=== PATIENT | male | born 1970 | race African-American/Black ===

== ENCOUNTER 2016-11-03 01:04 | Emergency (ER) | payer BC ==
[~2016-11-03] VITALS: Ht 172.7 cm; Wt 85.1 kg
[~2016-11-03 01:04] MED LIST: ANAPROX DS550 M1 PO; MOTRIN800 MG PO; NAPROXEN500 MG PO; NORCO 5/3251 TABLET PO; PEN-VEE K,VEET500 MG PO; PREDNISONE20 MG PO; no home
[2016-11-03] MEDS ORDERED: NAPROSYN500 MG PO (02:15)
[2016-11-03 02:24] VITALS: BP 138/83
== END 2016-11-03 02:24 | disposition home or self-care (01) ==
LOC: EXP 01:04 → EME 01:04 → EXP 02:24
DX: S46.911A Strain of unspecified muscle, fascia and tendon at shoulder and upper arm level, right arm, initial encounter (principal); X50.0XXA Overexertion from strenuous movement or load, initial encounter; Y99.0 Civilian activity done for income or pay; F17.200 Nicotine dependence, unspecified, uncomplicated
CPT/HCPCS: 73030; 99281; 99284

== ENCOUNTER 2016-12-20 16:32 | Emergency (ER) | payer OTHER, BC ==
[~2016-12-20] VITALS: Ht 172.7 cm; Wt 84.0 kg
[~2016-12-20 16:32] MED LIST changes: +NAPROSYN500 MG PO
[2016-12-20] MEDS ORDERED: NAPROXEN500 MG PO (20:14)
[2016-12-20] MEDS ORDERED: FLEXERIL10 MG PO (20:14)
[2016-12-20 20:41] VITALS: BP 108/61
== END 2016-12-20 20:43 | disposition home or self-care (01) ==
LOC: EME 16:32
DX: M54.2 Cervicalgia (principal); R51 Headache; M54.9 Dorsalgia, unspecified; V49.40XA Driver injured in collision with unspecified motor vehicles in traffic accident, initial encounter
CPT/HCPCS: 99281; 99282

== ENCOUNTER 2017-05-23 12:18 | Emergency (ER) | payer BC ==
[~2017-05-23] VITALS: Ht 172.7 cm; Wt 87.7 kg
[~2017-05-23 12:18] MED LIST changes: +FLEXERIL10 MG PO
[2017-05-23] MEDS ORDERED: PREDNISONE5 M1 PO (15:30)
[2017-05-23] MEDS ORDERED: MOTRIN600 MG PO (15:30)
[2017-05-23] MEDS ORDERED: FLEXERIL5 MG PO (15:30)
[2017-05-23 15:51] VITALS: BP 132/74
== END 2017-05-23 15:51 | disposition home or self-care (01) ==
LOC: EME 12:18
DX: M54.5 Low back pain (principal)
CPT/HCPCS: 99281; 99284

== ENCOUNTER 2017-06-15 03:35 | Emergency (ER) | payer BC ==
[~2017-06-15] VITALS: Ht 172.7 cm; Wt 89.8 kg
[~2017-06-15 03:35] MED LIST changes: +FLEXERIL5 MG PO; +MOTRIN600 MG PO; +PREDNISONE5 M1 PO
[2017-06-15] MEDS ORDERED: TYLENOL WITH C1 EACH PO (04:27)
[2017-06-15] MEDS ORDERED: MOTRIN800 MG PO (04:27)
[2017-06-15 04:59] VITALS: BP 137/99
== END 2017-06-15 05:00 | disposition home or self-care (01) ==
LOC: EME 03:35
DX: R59.0 Localized enlarged lymph nodes (principal)
CPT/HCPCS: 99281; 99283; J1100

== ENCOUNTER 2017-08-05 03:34 | Emergency (ER) | payer BC ==
[~2017-08-05] VITALS: Ht 172.7 cm; Wt 90.4 kg
[~2017-08-05 03:34] MED LIST changes: +TYLENOL WITH C1 EACH PO
[2017-08-05] MEDS ORDERED: PEN-VEE K,VEET500 MG PO (04:29)
[2017-08-05] MEDS ORDERED: ULTRAM50 MG PO (04:29)
[2017-08-05 04:47] VITALS: BP 176/99
== END 2017-08-05 04:50 | disposition home or self-care (01) ==
LOC: EME 03:34
DX: K08.89 Other specified disorders of teeth and supporting structures (principal)
CPT/HCPCS: 99281; 99283

== ENCOUNTER 2018-03-01 01:42 | Emergency (ER) | payer BC ==
[~2018-03-01] VITALS: Ht 172.7 cm; Wt 87.5 kg
[~2018-03-01 01:42] MED LIST changes: +ULTRAM50 MG PO
[2018-03-01] MEDS ORDERED: FLEXERIL10 MG PO (02:27)
[2018-03-01] MEDS ORDERED: MOTRIN800 MG PO (02:27)
[2018-03-01] MEDS ORDERED: ULTRAM50 MG PO (02:27)
[2018-03-01 03:00] VITALS: BP 142/81
== END 2018-03-01 03:01 | disposition home or self-care (01) ==
LOC: EME 01:42
DX: M54.5 Low back pain (principal); G89.29 Other chronic pain; F17.200 Nicotine dependence, unspecified, uncomplicated; V49.9XXD Car occupant (driver) (passenger) injured in unspecified traffic accident, subsequent encounter
CPT/HCPCS: 99281; 99283